=== PATIENT | male | born 1995 | race Caucasian/White ===

== ENCOUNTER 2017-05-08 08:47 | Emergency (ER) | payer OTHER ==
[~2017-05-08] VITALS: Ht 182.9 cm; Wt 83.6 kg
[2017-05-08 09:45] LABS: BASOPHIL (%) 0.3 % (0-1); EOSINOPHIL (%) 2.6 % (0-5); EOSINOPHIL COUNT 0.2 K/uL (0-0.3); HEMATOCRIT 43.9 % (38.0-50.0); HEMOGLOBIN 15.7 G/DL (12.5-16.6); IMMATURE GRANULOCYTE (%) 0.3 % (0.0-0.7); LYMPHOCYTE (%) 20.1 % (15-42); LYMPHOCYTE COUNT 1.2 K/uL (1.0-2.8); MCH 30.5 PG (29.0-34.0); MCHC 35.8 G/DL (30.0-36.0); MCV 85.2 FL (86-99); MONOCYTE (%) 8.9 % (3-12); MONOCYTE COUNT 0.6 K/uL (0-0.8); NEUTROPHIL (%) 67.8 % (45-76); NEUTROPHIL COUNT 4.2 K/uL (1.8-6.4); PLATELET COUNT 195 K/uL (156-360); RBC DIS.WIDTH-CV 11.7 % (11.8-14.6); RED BLOOD COUNT 5.15 M/uL (4.00-5.50); WHITE BLOOD COUNT 6.2 K/uL (4.1-10.2)
[2017-05-08 09:55] LABS: ALBUMIN 4.6 g/dL (3.2-4.8)
[2017-05-08 09:56] LABS: CHLORIDE 106 mEq/L (99-109); POTASSIUM 4.3 mEq/L (3.7-5.4); SODIUM 137 mEq/L (136-147)
[2017-05-08 09:58] LABS: GLUCOSE 108 mg/dL (70-99); TOTAL PROTEIN 7.1 g/dL (6.4-8.3)
[2017-05-08 10:00] LABS: TOTAL BILIRUBIN 0.7 mg/dL (0.0-1.0)
[2017-05-08 10:01] LABS: ALKALINE PHOSPHATASE 63 IU/L (3-129)
[2017-05-08 10:02] LABS: CREATININE 1.1 mg/dL (0.6-1.3); GFR ESTIMATE (CALCULATED) > 59 mL/min/ (58.99-99999)
[2017-05-08 10:03] LABS: AST (GOT) 20 IU/L (2-34); UREA NITROGEN (BUN) 17 mg/dL (9-23)
[2017-05-08 10:05] LABS: ALT (GPT) 25 IU/L (3-49)
[2017-05-08 10:15] LABS: APPEARANCE SL.HAZY ((CLEAR)); BILIRUBIN NEGATIVE; BLOOD SMALL; COLOR YELLOW ((YELLOW)); GLUCOSE (STRIP) NEGATIVE; KETONES 20; LEUKOCYTES NEGATIVE; NITRITE NEGATIVE; PROTEIN (STRIP) 100; UROBILINOGEN 0.2 MG/DL (0.2-1.0)
[2017-05-08 10:37] LABS: BACTERIA RARE /HPF; EPITHELIAL CELLS NONE SEEN /HPF; MUCUS TRACE /LPF; RED BLOOD CELLS TNTC /HPF (0-5); UCUL ADDED? YES; WHITE BLOOD CELLS 0-5 /HPF (0-5)
[2017-05-08 12:43] VITALS: BP 128/61
== END 2017-05-08 12:44 | disposition home or self-care (01) ==
LOC: EME 08:47
PROVIDERS: Emergency Medicine
DX: N20.0 Calculus of kidney (principal); I10 Essential (primary) hypertension
CPT/HCPCS: 74176; 80053; 81003; 85025; 87086; 99281; 99285; J1885; J3010; J7040